=== PATIENT | female | born 1960 | race Caucasian/White ===

== ENCOUNTER 2022-02-07 03:36 | Emergency (ER) | payer OTHER ==
[2022-02-07 03:40] VITALS: TEMP 98.4
[2022-02-07] MEDS ORDERED: OXYMETAZOLINE 0.05% NASL SPRAY 1 SPRAY BOTTLE NASAL STA (03:49)
[2022-02-07] MEDS ORDERED: cloNIDine HCL 0.2 MG TAB PO STA (03:50)
--- NOTE | 2022-02-07 03:51 | ED ---
ENT HPI - General Chief complaint: ENT Stated complaint: Nosebleed Time Seen by Provider: 02/07/22 03:49 Source: patient, RN notes reviewed, old records reviewed Mode of arrival: ambulatory Limitations: no limitations - History of Present Illness Initial comments: This is a 62-year-old female DF for evaluation no blood thinners history of high blood pressure coming in for evaluation. Bleeding from left naris states she woke up with bleeding from left naris tonight for about one hour she is not lightheaded dizzy or weak. Bleeding is slowing down MD complaint: epistaxis -: hour(s) Location: nose Severity: mild Severity scale (1-10): 2 Consistency: constant Improves with: none Worsens with: none Context-Epistaxis: history of similar Associated Symptoms: other (0) - Related Data Allergies Allergy/AdvReac Type Severity Reaction Status Date / Time diphenhydramine Allergy Unknown Verified 02/07/22 03:40 [From Benadryl] methylprednisolone Allergy Unknown Verified 02/07/22 03:40 [From Medrol] ofloxacin [From Floxin] Allergy Unknown Verified 02/07/22 03:40 prednisone Allergy Unknown Verified 02/07/22 03:40 pseudoephedrine Allergy Unknown Verified 02/07/22 03:40 [From Sudafed] Review of Systems ROS Statement: Those systems with pertinent positive or pertinent negative responses have been documented in the HPI. ROS Other: All systems not noted in ROS Statement are negative. Past Medical History Additional Past Medical History / Comment(s): headaches, kidney stones History of Any Multi-Drug Resistant Organisms: None Reported Past Surgical History: No Surgical Hx Reported Past Psychological History: No Psychological Hx Reported Smoking Status: Never smoker Past Alcohol Use History: None Reported Past Drug Use History: None Reported General Exam Limitations: no limitations General appearance: anxious Course Vital Signs 02/07/22 02/07/22 02/07/22 03:38 04:12 04:23 Temperature 98.4 F Pulse Rate 110 H 89 79 Respiratory 20 18 16 Rate Blood Pressure 181/139 175/105 159/85 O2 Sat by Pulse 100 98 98 Oximetry - Reevaluation(s) Reevaluation #1: 02/07/22 04:44 Medical record is reviewed Reevaluation #2: 02/07/22 04:44 Bleeding has stopped Reevaluation #3: 02/07/22 04:44 Patient informed results and questions answered Medical Decision Making - Medical Decision Making 62 female DEL with nosebleed. Nosebleed has resolved patient given plan of care for recurrent nosebleeding can be discharged home Disposition Clinical Impression: Epistaxis Disposition: HOME SELF-CARE Condition: Good Instructions (If sedation given, give patient instructions): Nosebleed (ED) Is patient prescribed a controlled substance at d/c from ED?: No Referrals: Carroll Luo MD [Primary Care Provider] - 1-2 days Time of Disposition: 04:30
[2022-02-07 04:24] VITALS: RESP 16
[2022-02-07 04:50] VITALS: BP 146/84; PULSE 80
== END 2022-02-07 04:50 | disposition home or self-care (01) ==
LOC: EC 03:36
DX: R04.0 Epistaxis (principal); Z88.8 Allergy status to other drugs, medicaments and biological substances
CPT/HCPCS: 99283